=== PATIENT | female | born 1945 | race Hispanic/Latino ===

== ENCOUNTER 2022-12-06 10:43 | Observation (INO) | payer MEDICARE ==
[2022-12-05 11:38] VITALS: BP 184/89
[2022-12-05 11:46] LABS: BASOPHILS % (AUTO) 0.5 % (0.0-5.0); EOSINOPHILS % (AUTO) 3.5 % (0.0-8.0); HEMATOCRIT 43.1 % (36-48); LYMPHOCYTES % (AUTO) 15.9 % (21.0-51.0); MEAN CORPUSCULAR HEMOGLOBIN 28.6 pg (27.0-33.0); MEAN CORPUSCULAR HGB CONC 31.3 g/dL (32.0-36.0); MEAN CORPUSCULAR VOLUME 91.3 fL (79-99); MONOCYTES % (AUTO) 5.3 % (3.0-13.0); NEUTROPHILS % (AUTO) 74.3 % (40.0-77.0); PLATELET COUNT (AUTO) 208 K/uL (130-400); RED BLOOD CELL COUNT(AUTO) 4.72 MIL/uL (4.00-5.50); RED CELL DISTRIBUTION WIDTH 13.6 % (11.0-15.5); WHITE BLOOD COUNT (AUTO) 10.7 K/uL (4.8-10.8)
[2022-12-05 11:58] LABS: CREATININE 1.3 mg/dL (0.5-1.5); INR 0.93 (0.85-1.15); POTASSIUM 4.9 mmol/L (3.5-5.1); PROTHROMBIN TIME 9.9 SEC (9.6-11.6)
[2022-12-05 12:00] LABS: PARTIAL THROMBOPLASTIN TIME 28.8 SEC (26.3-35.5)
[2022-12-06] VITALS (8 sets, daily range): BP systolic 122–168; BP diastolic 42–71
[~2022-12-06] VITALS: Ht 154.9 cm; Wt 120.8 kg
[~2022-12-06 10:43] MED LIST: AEC81 PO; ATOR40TA69 PO; EZET10TA48 PO; FERR-72 PO; FURO40TA5 PO; INSU100V37 SQ; LOSA50TA64 PO; METO25TA6 PO
[2022-12-06 12:59] LABS: BASOPHILS % (AUTO) 0.7 % (0.0-5.0); EOSINOPHILS % (AUTO) 5.7 % (0.0-8.0); HEMATOCRIT 42.9 % (36-48); LYMPHOCYTES % (AUTO) 22.5 % (21.0-51.0); MEAN CORPUSCULAR HEMOGLOBIN 28.5 pg (27.0-33.0); MEAN CORPUSCULAR HGB CONC 31.2 g/dL (32.0-36.0); MEAN CORPUSCULAR VOLUME 91.1 fL (79-99); MONOCYTES % (AUTO) 7.2 % (3.0-13.0); NEUTROPHILS % (AUTO) 63.4 % (40.0-77.0); PLATELET COUNT (AUTO) 224 K/uL (130-400); RED BLOOD CELL COUNT(AUTO) 4.71 MIL/uL (4.00-5.50); RED CELL DISTRIBUTION WIDTH 13.6 % (11.0-15.5); WHITE BLOOD COUNT (AUTO) 9.5 K/uL (4.8-10.8)
[2022-12-06] MEDS ORDERED: BUPIVACAINE/PF 0.25% 10ML VIAL IJ ONE (15:05)
[2022-12-06] MEDS ORDERED: LIDOCAINE HCL 1% 10 ML VIAL ONE (15:05)
[2022-12-06] MEDS ORDERED: LIDOCAINE HCL 1% 20 ML VIAL ONE (15:05)
[2022-12-06] MEDS ORDERED: CEFAZOLIN SODIUM 1 GM VIAL ONE (15:06)
[2022-12-06] MEDS ORDERED: FENTANYL CITRATE PF 50 MCG/1 ML 2ML VIAL ONE (15:06)
[2022-12-06] MEDS ORDERED: IOHEXOL-350 50ML VIAL IV ONE (15:06)
[2022-12-06] MEDS ORDERED: MIDAZOLAM HCL 1 MG/ML 2ML VIAL ONE ×2 (15:06→15:59)
[2022-12-06] MEDS ORDERED: TEMAZEPAM 30 MG CAP PO PRN (16:30)
[2022-12-06] MEDS ORDERED: ACETAMINOPHEN WITH CODEINE 1 TAB TAB PO PRN (16:30)
[2022-12-06] MEDS ORDERED: ONDANSETRON 4MG INJ IV PRN (16:30)
[2022-12-06] MEDS ORDERED: OCTYL 2-CYANOACRYLATE 1 EACH TP ONE (16:32)
[2022-12-06] MEDS: METOPROLOL TARTRATE 25 MG TAB PO SCH (20:40)
[2022-12-06] MEDS: LOSARTAN 50 MG TABLET PO SCH (20:40)
[2022-12-06] MEDS ORDERED: INSULIN DEGLUDEC 10 UNIT SQ SCH (21:00)
[2022-12-06] MEDS ORDERED: ATORVASTATIN 40 MG TABLET PO SCH (21:00)
[2022-12-06] MEDS: ACETAMINOPHEN WITH CODEINE 1 TAB TAB PO PRN (22:47)
[2022-12-07 04:26] VITALS: BP 128/45
[2022-12-07 07:00] VITALS: BP 129/38
[2022-12-07] MEDS: LOSARTAN 50 MG TABLET PO SCH (08:29)
[2022-12-07] MEDS: METOPROLOL TARTRATE 25 MG TAB PO SCH (08:30)
[2022-12-07] MEDS: ACETAMINOPHEN WITH CODEINE 1 TAB TAB PO PRN (08:30)
[2022-12-07] MEDS ORDERED: INSULIN DEGLUDEC 14 UNIT SQ SCH (09:00)
[2022-12-07] MEDS ORDERED: ASPIRIN 81 MG EC TAB PO SCH (09:00)
[2022-12-07] MEDS ORDERED: FUROSEMIDE 40 MG TABLET PO SCH (09:00)
[2022-12-07] MEDS ORDERED: FERROUS SULFATE 325 MG TABLET.DR PO SCH (09:00)
[2022-12-07] MEDS ORDERED: EZETIMIBE 10 MG TAB PO SCH (09:00)
[2022-12-07 11:00] VITALS: BP 134/34
[2022-12-08 07:00] VITALS: BP 110/59
== END 2022-12-07 14:00 | disposition home or self-care (01) ==
LOC: DAH 10:43 → DAHIP 10:44 → DAH 10:44 → 2DH 18:25
PROVIDERS: ADMIT Internal Medicine; ATTEND Internal Medicine
DX: I48.91 Unspecified atrial fibrillation (principal); I44.1 Atrioventricular block, second degree; E11.9 Type 2 diabetes mellitus without complications; I10 Essential (primary) hypertension; E78.5 Hyperlipidemia, unspecified; I25.10 Atherosclerotic heart disease of native coronary artery without angina pectoris; Z95.0 Presence of cardiac pacemaker; Z95.1 Presence of aortocoronary bypass graft; Z79.899 Other long term (current) drug therapy
CPT/HCPCS: 80048; 85025 ×2; 85610; 85730; 36415 ×2; 71045 ×2; 93005; 33208; 82948 ×7; C1785; C1898 ×2; C1894; G0378 ×21; J3010; J0690; J2250 ×2; J3490 ×2; Q9967; A4215; A4223 ×3; A4222; A4221; A4663; A4216; A4606; 99156; 99157